=== PATIENT | male | born 1985 | race Caucasian/White ===

== ENCOUNTER 2017-11-14 09:52 | Emergency (ER) | payer SELFPAY ==
[2017-11-14 11:51] LABS: HEPATITIS B SURFACE AB 3.6 mIU/mL
[2017-11-14 12:01] LABS: HEPATITIS B SURFACE ANTIGEN NEGATIVE
[2017-11-15 13:07] LABS: HEPATITIS B CORE ANTIBODY Negative (Negative)
== END 2017-11-14 10:22 | disposition home or self-care (01) ==
LOC: ER 10:21
DX: Z77.21 Contact with and (suspected) exposure to potentially hazardous body fluids (principal)
CPT/HCPCS: 87186; 99284